=== PATIENT | female | born 1955 | race Caucasian/White ===

== ENCOUNTER 2020-03-11 13:36 | Outpatient (CLI) | payer BC, SELFPAY ==
--- NOTE | ~2020-03-11 | XR_ITS ---
XR ankle LT min 3V DATE: 03/11/2020 14:03 INDICATION: Left ankle pain, lateral ankle instability TECHNIQUE: 4 views COMPARISON: None FINDINGS: There is prominent narrowing at the tibiotalar joint as well as prominent spurring, consist ent with prominent osteoarthritis. No fracture or dislocation of the ankle or disruption of the ankle mortise is evident. No periosteal reaction or bone destruction. Mild plantar calcaneal enthesopathy. IMPRESSION: Osteoarthritis of the tibiotalar joint Reviewed, dictated and finalized at location A.
== END 2020-03-11 13:37 | disposition home or self-care (01) ==
LOC: ANHIMG 13:41
PROVIDERS: PCP Internal Medicine; Visit Provider Podiatrist Foot & Ankle Surgery
DX: M25.372 Other instability, left ankle (principal); M19.072 Primary osteoarthritis, left ankle and foot
CPT/HCPCS: 73610

== ENCOUNTER 2021-11-13 12:49 | Emergency (ER) | payer MEDICARE, SELFPAY ==
--- NOTE | ~2021-11-13 | CT_ITS ---
EXAMINATION: CT brain wo con DATE: 11/13/2021 13:34 INDICATION: Altered mental status, memory loss TECHNIQUE: Computed tomography (CT) of the head was performed without intravenous contrast. The mA wa s adjusted according to patient size. Iterative reconstruction technique was employed. Exam dose: 60 5.33 mGy-cm total exam DLP. COMPARISON: None FINDINGS: No intracranial mass lesion or hemorrhage or cerebrovascular accident is detected. No midli ne shift or mass effects. Normal ventricular size. No subdural or epidural hematoma. There is some ca lcification of the carotid siphon internal carotid arteries. The orbits are unremarkable. The mastoid air cells and included paranasal sinuses are normally develo ped and aerated. No fracture or bone destruction of the cranial vault. IMPRESSION: Cerebral atherosclerosis No acute intracranial finding Reviewed, dictated and finalized at Location A. Reviewed, dictated and finalized at location B. 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
[2021-11-13 12:52] VITALS: BP 142/92; PULSE 82; RESP 18; TEMP 36.4; O2SAT 98
--- NOTE | 2021-11-13 13:24 | ECG_ITS ---
Measurements Intervals [facility] Rate: 48 P: 73 [place]: 151 QRS: 51 QRSD: 86 T: 49 QT: 469 QTc: 421 Interpretive Statements SINUS BRADYCARDIA ABNORMAL ECG Electronically Signed On 11-13-2021 14:00:04 CUSTOM GARMENT DESIGNER by Panchito Chakraborty D.O.
--- NOTE | 2021-11-13 13:49 | ED.AMS ---
HPI - Altered Mental Status General Chief Complaint: Altered Mental Status Stated Complaint: episode of AMS Time Seen by Provider: 11/13/21 13:17 Source: patient Mode of arrival: ambulatory Limitations: no limitations History of Present Illness HPI narrative: Patient is a 66-year-old female complaining of memory loss this past Saturday from 11 AM to 1 PM. Denies any episodes since. Patient denies any speech or visual disturbance, focal weakness or numbness, unsteady gait, headache, dizziness, chest pain, shortness of breath, nausea, vomiting, diarrhea, urinary symptoms, fever or chills. Related Data Home Medications Medication Instructions Recorded Confirmed omega-3 fatty acids 1,000 mg 1,000 mg PO DAILY 12/27/20 07/13/21 capsule vitamin E (dl, acetate) 180 mg 400 unit PO DAILY 12/27/20 07/13/21 (400 unit) capsule Allergies Allergy/AdvReac Type Severity Reaction Status Date / Time Penicillins Allergy Mild Hives / Verified 11/13/21 12:54 Red Face dichloralphenazone Allergy Unknown Unknown Verified 11/13/21 12:54 ISOMETHEPTENE MUCATE Allergy Unknown Unknown Uncoded 11/13/21 12:54 Review of Systems Review of Systems: All systems reviewed & are unremarkable except as noted in HPI and below Constitutional: Constitutional: Denies body ache(s), Denies chills, Denies excessive sweating, Denies fatigue, Denies fever(s), Denies headache(s), Denies lethargy, Denies malaise, Denies weakness and Denies weight loss Eyes: Eyes: Denies blurry vision, Denies change in vision and Denies loss of vision ENT: Denies dizziness, Denies ear discharge, Denies headache(s), Denies lip swelling, Denies epistaxis, Denies nasal congestion, Denies neck pain, Denies throat swelling and Denies tongue swelling Cardiovascular: Cardiovascular: Denies chest pain, Denies chest pain at rest, Denies chest pain with activity, Denies diaphoresis, Denies rapid heart rate, Denies edema, Denies irregular heart rhythm, Denies lightheadedness, Denies palpitations, Denies dyspnea and Denies dyspnea on exertion Respiratory: Respiratory: Denies chest congestion, Denies cough, Denies hemoptysis, Denies dyspnea and Denies dyspnea on exertion Gastrointestinal: Gastrointestinal: Denies abdominal pain, Denies melena, Denies hematochezia, Denies diarrhea, Denies nausea, Denies vomiting and Denies hematemesis Musculoskeletal: Musculoskeletal: Denies abnormal gait, Denies deformity, Denies joint swelling, Denies limited range of motion, Denies neck pain and Denies numbness Neurologic: Denies Abnormal speech present, Denies abnormal gait, Denies confusion, Denies dizziness, Denies headache(s), Denies focal weakness, Denies loss of vision, Denies numbness, Denies Other visual disturbances, Denies Sensory deficit (Neuro) and Denies weakness Psychiatric: Psychiatric: Denies confusion, Denies depression, Denies auditory hallucinations, Denies homicidal ideation and Denies suicidal ideation Endocrine: Endocrine: Denies cold intolerance, Denies excessive sweating, Denies fatigue, Denies heat intolerance and Denies palpitations Hematologic/Lymphatic: Hematologic/Lymphatic: Denies easy bleeding and Denies easy bruising Allergic/Immunologic: Allergic/Immunologic: Denies lip swelling, Denies throat swelling and Denies tongue swelling PMFSH Past Medical History Medical History BMI 31.0-31.9,adult BMI 32.0-32.9,adult Chronic back pain Chronic intractable headache Chronic pain of left ankle Colon cancer screening DJD (degenerative joint disease), multiple sites Elevated glucose Elevated homocysteine Encounter for routine adult health examination without abnormal findings Hyperlipidemia Insomnia On retirement drug therapy Onychomycosis Pre-diabetes Family History Family History Sibling Family history of mental disorder Patient's sister is in good health Patient
[2021-11-13 14:20] LABS: Basophils Percent Auto 0.5 % (0.2-1.2); Eosinophils Absolute Auto 0.1 K/mm3 (0-0.3); Eosinophils Percent Auto 1.1 % (0-4.4); Hematocrit 39.7 % (37.0-47.0); Hemoglobin 13.2 g/dL (12.0-15.0); Immature Granulocyte Absolute 0.01 K/mm3 (0.00-0.031); Immature Granulocyte Percent A 0.2 % (0-0.5); Lymphocytes Absolute Auto 1.95 K/mm3 (0.9-3.2); Lymphocytes Percent Auto 29.5 % (18.3-44.2); Mean Corpuscular HGB Conc 33.2 g/dl (32-36); Mean Corpuscular Hemoglobin 30.3 pg (26-34); Mean Corpuscular Volume 91.1 fl (80-100); Monocytes Absolute Auto 0.4 K/mm3 (0.1-0.6); Monocytes Percent Auto 6.4 % (2.6-8.5); Neutrophils Absolute Auto 4.1 K/mm3 (1.3-6.7); Neutrophils Percent Auto 62.3 % (45.5-73.1); Platelet Count Result 253 k/mm3 (150-375); Red Blood Count 4.36 M/mm3 (4.2-5.4); Red Cell Distribution Width 13.1 % (11.5-14.5); White Blood Count 6.6 K/mm3 (4.5-10.0)
[2021-11-13 14:21] LABS: Anion Gap 6 mmol/L (8-16); Blood Urea Nitrogen 14 mg/dL (7-17); Calcium 8.9 mg/dL (8.4-10.2); Carbon Dioxide 28 mmol/L (22-30); Chloride 105 mmol/L (98-107); Estimated CRCL calculation 70 ml/min; Estimated Glomerular Filt Rate > 60; Glucose 108 mg/dL (65-110); Potassium 4.1 mmol/L (3.4-5.0); Sodium 139 mmol/L (137-145)
[2021-11-13 14:33] LABS: Troponin I < 0.012 ng/mL (0.000-0.034)
[2021-11-13 14:40] LABS: Add Urine Microscopic? NO; Appearance Urine Clear (Clear); Bilirubin Urine Negative (Negative); Blood Urine Negative (Negative); Color Urine Yellow (Yellow); Glucose Urine UA Negative (Negative); Ketones Urine Negative (Negative); Leukocyte Esterase Ur Negative LEU/UL (Negative); Nitrate Urine Negative (Negative); Protein Urine Negative (Negative); Specific Grav Ur 1.016 (1.001-1.035); Urobilinogen Urine Negative mg/dL (<2.0)
[2021-11-13 15:03] VITALS: BP 147/82; PULSE 77; RESP 16; TEMP 36.3; O2SAT 100
== END 2021-11-13 15:05 | disposition home or self-care (01) ==
PROVIDERS: Emergency Provider Emergency Medicine; PCP Internal Medicine
DX: G45.4 Transient global amnesia (principal); E78.5 Hyperlipidemia, unspecified; R73.03 Prediabetes; R00.1 Bradycardia, unspecified; I67.2 Cerebral atherosclerosis
CPT/HCPCS: 36415; 70450; 80048; 81003; 84484; 85025; 93005; 99284; J7120

== ENCOUNTER 2021-12-11 08:39 | Outpatient (CLI) | payer MEDICARE, SELFPAY ==
--- NOTE | 2021-12-12 10:22 | WPDNEUROLOGY ---
Neurology EEG Report General Information Date of Study: 12/11/21 TEST eeg DIAGNOSIS transient global amnesia CONDITION OF RECORDING awake drowsy and sleep EEG NUMBER [id number] CLINICAL HISTORY patient reports about a month ago she had an episode of amnesia that lasted for several hours. EEG DESCRIPTION Basic resting occipital frequency consists of large amount of well-organized low to medium voltage 9 to 11 hertz per 2nd alpha admixed with low-voltage 15 to 18 hertz per 2nd beta. Low-voltage beta activity seen diffusely admixed with waxing and waning posterior alpha rhythm during drowsiness. Bilateral symmetrical sleep activity seen during sleep. Photic stimulation produced normal drive. Hyperventilation not done. Non paroxysmal. Nonfocal. Nonlateralizing. IMPRESSION Normal record
== END 2021-12-11 08:40 | disposition home or self-care (01) ==
PROVIDERS: PCP Internal Medicine; Visit Provider Internal Medicine
DX: G45.4 Transient global amnesia (principal)
CPT/HCPCS: 95816

== ENCOUNTER → 2021-12-21 11:55 | Outpatient (CLI) | payer MEDICARE, SELFPAY ==
--- NOTE | ~2021-12-21 | MR_ITS ---
EXAMINATION: MR brain/brain stem wo/w con EXAM DATE: 12/21/2021 12:34 INDICATION: G45.4 - Transient global amnesia. TECHNIQUE: Magnetic resonance imaging (MRI) of the brain/brain stem obtained without contrast. Sagit ariel T1, axial diffusion, gradient echo (T2*), T1, T2, FLAIR sequences obtained. Patient was then inj ected with 18 cc intravenous Multihance contrast. Axial and coronal postcontrast T1 weighted sequence s obtained. There is no prior study for comparison. FINDINGS: There are no areas of restricted diffusion to suggest acute infarction. There is no acute hemorrhage seen on the T2*, a hemosiderin sensitive sequence. No intraparenchymal brain mass. The ve ntricles are normal in size. Mild scattered white matter T2/flair hyperintensities, microangiopathy. There are no extra-axial collections. Flow voids are seen in the cerebral arteries on the T2-weighte d sequences consistent with their expected patency. The orbits are unremarkable. Soft tissue is unr emarkable. There are no areas of abnormal enhancement on the postcontrast images. IMPRESSION: 1. Mild microangiopathy. Reviewed, dictated and finalized at location G. IMPRESSION: 1. Mild microangiopathy.
== END ==
PROVIDERS: PCP Internal Medicine; Visit Provider Internal Medicine
DX: G45.4 Transient global amnesia (principal); I73.9 Peripheral vascular disease, unspecified
CPT/HCPCS: 70553; A9577

== ENCOUNTER 2022-01-05 01:13 | Day surgery (SDC) | payer MEDICARE, SELFPAY ==
[2021-12-26 15:52] VITALS: BMI 30.2
--- NOTE | 2022-01-05 07:28 | PM.HPGS ---
History of Present Illness History of Present Illness Consent: Risks, benefits, and alternatives have been discussed and questions answered. Patient agrees to proceed with procedure. Chief complaint: neoplasm screening Narrative: Kaia Simmons is a 66 year old female referred for colon cancer screening. Her last examination was 10 years ago and was negative except for diverticular disease. Review of Systems Review of Systems: All systems reviewed & are unremarkable except as noted in HPI and below PMFSH Past Medical History Medical History Anxiety and depression Benign essential hypertension BMI 31.0-31.9,adult BMI 32.0-32.9,adult Breast cancer screening Chronic back pain Chronic intractable headache Chronic pain of left ankle Colon cancer screening DJD (degenerative joint disease), multiple sites Elevated glucose Elevated homocysteine Encounter for routine adult health examination with abnormal findings Encounter for routine adult health examination without abnormal findings Hyperlipidemia Insomnia 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 Onychomycosis Pre-diabetes Primary osteoarthritis involving multiple joints Stress Subacute maxillary sinusitis Transient global amnesia Family History Family History Sibling Family history of mental disorder Patient's sister is in good health Patient's brother is in good health Family history of alcoholism Family history of diabetes mellitus in first degree relative Family history of seizure disorder Grandparent Family history of osteoarthritis Diabetes mellitus Father Family history of alcoholism, Onset Age: 69 Patient's father is Mother Family history of malignant neoplasm of breast in first degree relative Other Cerebrovascular accident Family history of malignant neoplasm of breast Social History Social History Smoking status: Never smoker Alcohol intake: never Substance use: never Substance use type: does not use Living arrangements: with family Spiritual care concerns: No Meds Home Medications and Allergies Home Medications Medication Instructions Recorded Confirmed Type vitamin E (dl, acetate) 180 mg 400 unit PO DAILY 12/27/20 01/05/22 History (400 unit) capsule omeprazole 40 mg capsule,delayed See Rx Instructions .ROUTE 04/21/21 01/05/22 Rx release .COMPLEX #30 cap venlafaxine 75 mg tablet See Rx Instructions .ROUTE 04/21/21 01/05/22 Rx .COMPLEX #30 tablet nwnmrxyuin-bvqohhmiatfbd-fclqmszw 1 tablet PO .COMPLEX PRN #30 tablet 07/12/21 01/05/22 Rx 50 mg-325 mg-40 mg tablet sumatriptan succinate 25 mg tablet See Rx Instructions .ROUTE 07/12/21 01/05/22 Rx .COMPLEX #18 tablet diclofenac sodium 75 mg See Rx Instructions .ROUTE 09/14/21 01/05/22 Rx tablet,delayed release .COMPLEX #60 tablet diltiazem HCl 360 mg See Rx Instructions .ROUTE 11/16/21 01/05/22 Rx capsule,extended release 24 hr .COMPLEX #90 cap ezetimibe 10 mg tablet See Rx Instructions .ROUTE 11/16/21 01/05/22 Rx .COMPLEX #90 tablet fluticasone propionate 50 See Rx Instructions .ROUTE 11/20/21 01/05/22 Rx mcg/actuation nasal .COMPLEX #48 ml spray,suspension atorvastatin 80 mg tablet See Rx Instructions .ROUTE 12/01/21 01/05/22 Rx .COMPLEX #90 tablet MEGARED 1,000 mg BYMOUTH DAILY #90 cap 12/05/21 01/05/22 Rx hydrocodone 7.5 mg-acetaminophen 1 tablet PO Q6H PRN #60 tablet 12/05/21 01/05/22 Rx 325 mg tablet trazodone 50 mg tablet See Rx Instructions .ROUTE 12/07/21 01/05/22 Rx .COMPLEX #270 tablet Allergies Allergy/AdvReac Type Severity Reaction Status Date / Time Penicillins Allergy Mild Hives / Verified 01/05/22 10:37 Red Face dichloralphenazone Allergy Unknown Unknown Verified 01/05/22 10:37 ISOMETHEPTENE MUCATE Allergy Unknown Unknown Uncoded 01/05/22 10:
[2022-01-05 10:40] VITALS: BP 153/88; PULSE 88; RESP 17; TEMP 36.5; O2SAT 100; BMI 30.2
[2022-01-05] MEDS: LACTATED RINGERS 1,000 ML 150 ML IV CONT (10:43)
--- NOTE | 2022-01-05 11:14 | WPDANESEPPF ---
Anes - Initial Pre Proc Eval Procedure: Operation Date: 01/05/22 11:30 Proposed Procedures p Screening Colonoscopy - Earle Osuna MD Date/Time: 01/05/22 11:14 Surgeon: Earle Osuna MD Pre Op Diagnosis: neoplasm screening Patient Data Age: 66 Gender: F Height: 1.73 m Weight: 90.3 kg Last Vital Signs Temp 36.5 C 01/05/22 10:40 Pulse 88 01/05/22 10:40 Resp 17 01/05/22 10:40 BP 153/88 H 01/05/22 10:40 Pulse Ox 100 01/05/22 10:40 Allergies Allergy/AdvReac Type Severity Reaction Status Date / Time Penicillins Allergy Mild Hives / Verified 01/05/22 10:37 Red Face dichloralphenazone Allergy Unknown Unknown Verified 01/05/22 10:37 ISOMETHEPTENE MUCATE Allergy Unknown Unknown Uncoded 01/05/22 10:37 Home Medications Medication Instructions Recorded Confirmed Type vitamin E (dl, acetate) 180 mg 400 unit PO DAILY 12/27/20 01/05/22 History (400 unit) capsule omeprazole 40 mg capsule,delayed See Rx Instructions .ROUTE 04/21/21 01/05/22 Rx release .COMPLEX #30 cap venlafaxine 75 mg tablet See Rx Instructions .ROUTE 04/21/21 01/05/22 Rx .COMPLEX #30 tablet xorpiboayr-shpivyzevbnck-gvrbotbx 1 tablet PO .COMPLEX PRN #30 tablet 07/12/21 01/05/22 Rx 50 mg-325 mg-40 mg tablet sumatriptan succinate 25 mg tablet See Rx Instructions .ROUTE 07/12/21 01/05/22 Rx .COMPLEX #18 tablet diclofenac sodium 75 mg See Rx Instructions .ROUTE 09/14/21 01/05/22 Rx tablet,delayed release .COMPLEX #60 tablet diltiazem HCl 360 mg See Rx Instructions .ROUTE 11/16/21 01/05/22 Rx capsule,extended release 24 hr .COMPLEX #90 cap ezetimibe 10 mg tablet See Rx Instructions .ROUTE 11/16/21 01/05/22 Rx .COMPLEX #90 tablet fluticasone propionate 50 See Rx Instructions .ROUTE 11/20/21 01/05/22 Rx mcg/actuation nasal .COMPLEX #48 ml spray,suspension atorvastatin 80 mg tablet See Rx Instructions .ROUTE 12/01/21 01/05/22 Rx .COMPLEX #90 tablet MEGARED 1,000 mg BYMOUTH DAILY #90 cap 12/05/21 01/05/22 Rx hydrocodone 7.5 mg-acetaminophen 1 tablet PO Q6H PRN #60 tablet 12/05/21 01/05/22 Rx 325 mg tablet trazodone 50 mg tablet See Rx Instructions .ROUTE 12/07/21 01/05/22 Rx .COMPLEX #270 tablet Patient hx anesthesia problems: none Family hx anesthesia problems: none Results Review: All pre-operative results and documents have been reviewed as part of the pre-operative evaluation. [facility] Past Medical History Medical History Anxiety and depression Benign essential hypertension Chronic intractable headache Family History Family History Sibling Family history of mental disorder Patient's sister is in good health Patient's brother is in good health Family history of alcoholism Family history of diabetes mellitus in first degree relative Family history of seizure disorder Grandparent Family history of osteoarthritis Diabetes mellitus Father Family history of alcoholism, Onset Age: 69 Patient's father is Mother Family history of malignant neoplasm of breast in first degree relative Other Cerebrovascular accident Family history of malignant neoplasm of breast Social History Social History Smoking status: Never smoker Alcohol intake: never Substance use: never Substance use type: does not use Living arrangements: with family Spiritual care concerns: No Anes - Eval Final PreProcedure Day of Procedure 01/05/22 11:14 Patient weight: overweight Heart: regular rate and rhythm Lungs: clear to auscultation Airway: Mallampati scale class II Neurological: alert and oriented ASA classification: II Emergent: no Anesthetic plan: proceed Anesthesia type and monitoring: general GIVS and standard monitoring Results Review: All pre-operative results and documents have b
[2022-01-05 12:20] VITALS: BP 116/66; PULSE 65; RESP 18; O2SAT 100
[2022-01-05 12:30] VITALS: BP 129/75; PULSE 69; RESP 20; O2SAT 100
[2022-01-05 12:40] VITALS: BP 159/92; PULSE 74; RESP 22; O2SAT 96
== END 2022-01-05 12:56 | disposition home or self-care (01) ==
PROVIDERS: PCP Internal Medicine; Visit Provider Internal Medicine Gastroenterology
PROC: 0DJD8ZZ Inspection of Lower Intestinal Tract, Via Natural or Artificial Opening Endoscopic (ICD-10-PCS; CPT 45378; principal; 2022-01-05 11:30)
DX: Z12.11 Encounter for screening for malignant neoplasm of colon (principal); K57.30 Diverticulosis of large intestine without perforation or abscess without bleeding; D12.5 Benign neoplasm of sigmoid colon; E78.5 Hyperlipidemia, unspecified; M15.9 Polyosteoarthritis, unspecified; R73.03 Prediabetes; F32.A Depression, unspecified; F41.9 Anxiety disorder, unspecified; Z79.899 Other long term (current) drug therapy
CPT/HCPCS: 45385; 88305; J2001; J2704; J7120

== ENCOUNTER 2022-06-05 09:14 | Outpatient (CLI) | payer MEDICARE, SELFPAY ==
--- NOTE | ~2022-06-05 | US_ITS ---
EXAMINATION: US abdomen limited DATE: 06/05/2022 09:44 INDICATION: Abnormal levels of other serum enzymes TECHNIQUE: Multiple grayscale and Doppler ultrasound images of the abdomen were obtained. COMPARISON: None available FINDINGS: Bowel gas obscures visualization of the pancreas. The visualized portions of the pancreas a re unremarkable. The liver is normal with normal echogenicity and echotexture. No surface nodularity. Normal hepatopetal flow in the main portal vein. The gallbladder is normal with no abnormal wall thi ckening, pericholecystic fluid or stones. The normal common bile duct measures 3 mm. There was no son ographic Lopez sign. IMPRESSION: 1. Normal sonographic study of the gallbladder. Reviewed, dictated and finalized at location B.
== END 2022-06-05 09:15 | disposition home or self-care (01) ==
PROVIDERS: PCP Internal Medicine; Visit Provider Internal Medicine
DX: R74.8 Abnormal levels of other serum enzymes (principal)
CPT/HCPCS: 76705

== ENCOUNTER 2022-06-11 11:30 | Outpatient (CLI) | payer MEDICARE, SELFPAY ==
--- NOTE | ~2022-06-11 | XR_ITS ---
EXAM: XR hip BI 2V w AP pelvis DATE: 06/11/2022 11:56 HISTORY: M25.559 - Pain in unspecified hip CHRONIC BILAT NON INJ . COMPARISON: 08/16/2017. FINDINGS: Normal mineralization. No fracture or dislocation. No lytic or blastic lesion. Severe bila teral superior hip joint space narrowing, subchondral sclerosis, osteophytosis, and subchondral cyst formation. Degenerative change at the pubic symphysis. Greater trochanter and pelvic enthesopathy. Mi ld degenerative change in the lumbar spine. No erosion or periosteal change. Pelvic phleboliths. IMPRESSION: Severe bilateral hip osteoarthritis. Osteitis pubis. Reviewed, dictated and finalized at location K.
== END 2022-06-11 11:31 | disposition home or self-care (01) ==
PROVIDERS: PCP Internal Medicine; Visit Provider Internal Medicine
DX: M25.559 Pain in unspecified hip (principal); M16.0 Bilateral primary osteoarthritis of hip; M86.9 Osteomyelitis, unspecified
CPT/HCPCS: 73521

== ENCOUNTER 2023-06-05 11:28 | Outpatient (CLI) | payer MEDICARE, SELFPAY ==
--- NOTE | ~2023-06-05 | XR_ITS ---
EXAMINATION: XR hand LT min 3V INDICATION: Osteoarthritis of the first carpometacarpal joint TECHNIQUE: Three views of the left hand are obtained. COMPARISON: 04/20/2009 FINDINGS: There is advanced osteoarthritis of the first carpometacarpal joint with interval worsening since the comparison examination. There is moderate osteoarthritis at the triscaphe joint. No fractu re is identified. There is mild to moderate osteoarthritis of multiple interphalangeal joints. IMPRESSION: 1. Polyarticular osteoarthritis, advanced at the first carpometacarpal joint. Reviewed, dictated and finalized at location F.
--- NOTE | ~2023-06-05 | XR_ITS ---
EXAMINATION: XR hand RT min 3V INDICATION: Osteoarthritis of the first carpometacarpal joint TECHNIQUE: Three views of the right hand are obtained. COMPARISON: 04/20/2009 FINDINGS: There is advanced osteoarthritis at the first carpometacarpal joint. There is moderate oste oarthritis of the triscaphe joint. There is advanced osteoarthritis of the second and third distal in terphalangeal joints and mild osteoarthritis of the remaining interphalangeal joints. There is no fra cture. The soft tissues are unremarkable. IMPRESSION: 1. Polyarticular osteoarthritis, advanced at the first carpometacarpal joint. Reviewed, dictated and finalized at location F.
== END 2023-06-05 11:29 | disposition home or self-care (01) ==
PROVIDERS: PCP Internal Medicine; Visit Provider Plastic Surgery
DX: M19.041 Primary osteoarthritis, right hand (principal); M19.042 Primary osteoarthritis, left hand
CPT/HCPCS: 73130

== ENCOUNTER 2024-04-14 13:15 | Outpatient (CLI) | payer MEDICARE, SELFPAY ==
--- NOTE | ~2024-04-14 | XR_ITS ---
XR chest 2V Ordering provider: Jas West MD History: 68 years Female with . R05.9 - Cough, unspecified X 2 MO . Comparison: December 11, 2016 FINDINGS: MEDIASTINUM: The cardiac silhouette is not enlarged. LUNGS: No infiltrates, effusions or pneumothorax. OTHER: No free air under the diaphragm. Degenerative changes of the spine. IMPRESSION: No acute cardiopulmonary pathology. Reviewed, dictated and finalized at location A.
== END 2024-04-14 13:16 | disposition home or self-care (01) ==
LOC: ANHIMG 13:18
PROVIDERS: PCP Internal Medicine; Visit Provider Internal Medicine
DX: R05.9 Cough, unspecified (principal)
CPT/HCPCS: 71046

== ENCOUNTER 2024-11-03 13:46 | Outpatient (CLI) | payer MEDICARE, SELFPAY ==
--- NOTE | ~2024-11-03 | XR_ITS ---
EXAMINATION: XR UGIAC w small bowel DATE: 11/03/2024 14:58 INDICATION: Unspecified abdominal pain. Nausea. TECHNIQUE: The patient drank thick barium, gas-producing crystals, and thin barium. Fluoroscopy of th e esophagus, stomach, and small bowel was performed. Fluoroscopy exposure time was 1.1 minutes. Radio graphs of the abdomen were obtained. The total number of images was 288. COMPARISON: None. FINDINGS: UPPER GASTROINTESTINAL SERIES: There is no mass or stricture of the esophagus. Esophageal motility is normal. There is a small slidi ng hiatal hernia. There was gastroesophageal reflux with provocative maneuvers. The stomach shows a n ormal folding pattern. SMALL BOWEL SERIES: The small bowel shows a normal folding pattern. Specifically, the terminal ileum is normal. Transit t mike to the colon was 15 minutes. IMPRESSION: 1. Small sliding hiatal hernia. 2. Gastroesophageal reflux with provocative maneuvers. 3. Normal small bowel series. Reviewed, dictated and finalized at location A. IC SERVICE OFFICER
--- OUTSIDE RECORDS SUMMARY | 2024-11-03 13:58 | XMS_ITS | CONTINUITY OF CARE DOCUMENT ---
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
--- OUTSIDE RECORDS SUMMARY | 2024-11-03 13:58 | XMS_ITS | Referral Summary ---
Author Organization [facility] Address [address] [place] [id number] Care Team Providers Care Bit Shaver Name Role Phone Jas West MD Primary Care Provider [phone] Encounters Date Type Department Care Team Description 08/03/2024 8:00 AM SUPERCHARGE REPAIR SUPERVISOR Diagnostic [facility] Orthopaedic Surgery [address] [place] [address] Medical Office Building [address] [place] [address] Frankie Khalil MD Numbness of left foot from Last 3 Months Allergies Active Allergy Reactions Criticality Noted Date Comments Hxwttcd-Snqrggond-Plnkomd nophn Hives Medium 01/10/2022 Hives in same spot every time she'd get them Penicillins Hives,Swelling Medium 01/10/2022 As a child Medications atorvastatin (LIPITOR) 80 mg tabletIndicatio ns:hyperlipidem ia Take 80 mg by mouth nightly 05/11/20 21 Active butalbital-acet aminophen-caffe ine (ESGIC) 50-325-40 mg per tabletIndicatio ns:Migraine Take 1 tablet by mouth daily as needed for headaches 07/12/[address] (VOLTAREN) 75 mg EC tabletIndicatio ns:Osteoarthrit is Take 75 mg by mouth 2 (two) times a day 07/16/20 21 Active diltiaZEM CD (CARDIZEM CD) 360 mg 24 hr capsuleIndicati ons:hypertensio n Take 360 mg by mouth nightly 05/19/20 21 Active ezetimibe (ZETIA) 10 mg tabletIndicatio ns:hyperlipidem ia Take 10 mg by mouth nightly 05/04/20 21 Active fluticasone propionate (FLONASE) 50 mcg/actuation nasal spray Administer 1 spray into each nostril every morning 05/27/20 21 Active omeprazole (PriLOSEC) 40 mg capsuleIndicati ons:GERD Take 40 mg by mouth every morning 04/24/20 21 Active SUMAtriptan (IMITREX) 25 mg tablet Take 25 mg by mouth once as needed for migraine 07/12/20 21 Active venlafaxine (EFFEXOR) 75 mg tabletIndicatio ns:to reduce hot flashes Take 75 mg by mouth nightly 04/21/20 21 Active traZODone (DESYREL) 50 mg tabletIndicatio ns:insomnia associated with depression Take by mouth nightly Up to 2-3 tabs depending on how tired she is Active glucosamine/cho ndr roe A sod (glucosamine-ch ondroitin) 1,500-1,200 mg/30 mL liquidIndicatio ns:Arthritis Take 1 tablet by mouth nightly Active cholecalciferol (VITAMIN D-3) 2000 unit capsuleIndicati ons:Vitamin D Deficiency Take 2,000 Units by mouth nightly Active apple cider vinegar 500 mg tabletIndicatio ns:Someone said it is good for you Take 500 mg by mouth nightly Active omega-3/dha/epa /fish oil/krill (MEGARED ADVANCED 4-IN-1 ORAL)Indication s:Arthritis and cholesterol Take 1 capsule by mouth nightly Active aspirin 325 mg enteric coated tablet Take 1 tablet (325 mg total) by mouth daily 30 tablet 01/19/20 22 Active senna (SENOKOT) 8.6 mg tablet Take 1 tablet by mouth daily 30 tablet 01/19/20 22 Active ketorolac (TORADOL) 10 mg tablet Take 1 tablet (10 mg total) by mouth every 6 (six) hours as needed for pain 16 tablet 01/24/20 22 Active Additional Information Patient not taking.Reported on 06/30/2024 promethazine (PHENERGAN) 25 mg tabletIndicatio ns:Nausea and Vomiting Take 12.5 mg by mouth every 6 (six) hours as needed for nausea. Indications: nausea and vomiting Active molnupiravir 200 mg capsule (EUA) TAKE 4 CAPSULES BY MOUTH EVERY 12 HOURS FOR 5 DAYS 03/22/20 Active HYDROcodone-dorota taminophen (NORCO) 7.5-325 mg per tablet Take by mouth every 6 (six) hours as needed 03/09/20 Active pregabalin (LYRICA) 75 mg capsule Take 1 capsule PO in the AM for 1 week then take 2 capsule PO BID for a month 72 capsule 1 05/24/20 Active methylPREDNISol one (MEDROL DOSEPACK) 4 mg Dosepack methylprednisolone 4 mg tablets in a dose pack TAKE 6 TABLETS ON DAY 1 DIRECTED ON PACKAGE AND DECREASE BY 1 TAB EACH DAY FOR A TOTAL OF 6 DAYS Active cyclobenzaprine (FLEXERIL) 10 mg tablet cyclobenzaprine 10 mg tablet Active amitriptyline (ELAVIL) 100 mg tablet TAKE 1 TABLET BY MOUTH EVERY DAY AT BEDTIME - PLEASE STOP THE 25MG 11/21/19 Active Aimovig Autoinjector 70 mg/mL auto-injector subcutaneous injection INJECT 70MG SUBCUTANEOUSLY ONCE A MONTH 06/23/20 Active Active Problems Problem Noted Date Diagnosed Date Primary localized osteoarthritis of pelvic regio n and thigh 07/26/2022 Hip pain 07/26/2022 Trochanteric bursitis of right hip 07/11/2022 Osteoarthritis of left ankle , unspecified osteoarthritis type 01/22/2022 Arthritis of left ankle 01/22/2022 HTN (hypertension) 01/17/2022 HLD (hyperlipidemia) 01/17/2022 Osteoarthritis of left ankle 12/06/2021 Overview (12/06/2021): Added automatically from request for surgery [id number] Social History Tobacco Use Types Packs/Day Years Used Date Smoking Tobacco: Never Smokeless Tobacco: Never AUDIT-C Answer Date Recorded Q1: How often do you have a drink containing alc ohol? Monthly or less 01/22/2022 Q2: How many drinks containi ng alcohol do you have on a typical day when you are drinking? 1 or 2 01/22/2022 Frequency of Binge Drinking Not on file 12/30 Comments No Sex and Gender Information Value Date Recorded Sex Assigned at Not on file Legal Sex Female 3:34 PM CDT Gender Identity Not on file Sexual Orientation Not on file Last Filed Vital Signs Vital Sign Reading Time Taken Comments Blood Pressure 118/77 02/07/2022 8:53 AM CDT Pulse 65 02/07/2022 8:53 AM CDT Temperature 36.1 ??C (97 ??F) 02/07/2022 8:53 AM CDT Respiratory Rate 18 02/07/2022 8:53 AM CDT Oxygen Saturation 96% 02/07/2022 8:53 AM CDT Inhaled Oxygen Concentration - - Weight 90.6 kg (199 lb 11.8 oz) 01/22/2022 5:45 AM CDT Height 172.7 cm (5' 8 ) 01/22/2022 5:45 AM CDT Body Mass Index 30.37 01/22/2022 5:45 AM CDT Plan of Treatment Not on file Medical Devices Implanted Type Area Health Equipment Servicer Device Identifier Shelf Expiration Date Model / Serial / Lot [employer] [id number] Infinity Knee 3 Tray Tibial Adaptis - [id number] Implanted:Qty: 1 on 01/22/2022 by Felix Landa MD at [facility] Left: Ankle [employer] [id number] 11/14/2029 [id number] / / [id number] [employer] [id number] Taldome Infinity Adaptis Flatcut Sz2 - [id number] - [id number] Implanted:Qty: 1 on 01/22/2022 by Felix Landa MD at [facility] Left: Ankle [employer] [id number] 09/26/2029 [id number] / [id number] / [id number] [employer] [id number] Impl Fxatn 8mm Inbone 2+ Ankle Everlast - [id number] - [id number] Implanted:Qty: 1 on 01/22/2022 by Felix Landa MD at [facility] Left: Ankle [employer] [id number] 01/15/2029 [id number] / [id number] / [id number] Procedures Procedure Name Priority Date/Time Associated Diagnosis Comments EMG/NCV Routine 08/03/2024 8:03 AM SUPERCHARGE REPAIR SUPERVISOR Numbness of left foot from Last 3 Months Results * EMG/NCV - (08/03/2024 8:03 AM SUPERCHARGE REPAIR SUPERVISOR) Anatomical Region Laterality Modality Other Frankie Khalil MD NEUROLOGY ORDERABLES Final Result from Last 3 Months Insurance MEDICARE SOLUTIONS MEDICARE SOLUTIONS [facility] MDCR HMO REF Advance Directives For more information, please contact: [phone] * Full Code (Latest Code Status on File) Date Activated Date Inactivated Comments 01/22/2022 12:42 PM 01/23/2022 6:25 PM Care Teams Bit Shaver Relationship Specialty Start Date End Date Jas West MD [address] INTERNAL MEDICINE [place] [id number] PCP - General Internal Medicine 02/08/21
--- OUTSIDE RECORDS SUMMARY | 2024-11-03 13:58 | XMS_ITS | Clinical Summary ---
Author Organization [facility] Address [address] [place] [address]. 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 Gender Identity Not on file Sexual Orientation Not on file Plan of Treatment Health Maintenance Due Date Last Done Comments Colorectal Cancer Screening Colonoscopy (10 Years) 1956 Hepatitis C 1974 DTaP, Tdap and Td Vaccines ( 1 - Tdap) 1975 Mammogram Screening 1996 Zoster Vaccines (1 of 2) 2006 Annual Medicare Wellness Visit 2021 Dexa Scan (General) 2021 Pneumococcal Vaccine: 65+ Ye ars (1 of 1 - PCV) 2021 COVID-19 Vaccine (2023-2 5 season) 2024 Influenza Adult (#1) 2024 RSV Immunization or 60+ Years (1 - 1-dose 75+ series) 2031 Meningococcal B Vaccine Aged Out No l onger eligible based on patient's age to complete this topic Meningococcal Vaccine Aged Out No jeronimo desire eligible based on patient's age to complete this topic RSV Immunizations Under 20 Months Aged Out No longer eligible based on patient's age to complete this topic Insurance [facility] Care Teams Pumper Gauger Relationship Specialty Start Date End Date Jas West MD [address] [place] [id number] PCP - General INTERNAL MEDICINE 09/02/20
--- OUTSIDE RECORDS SUMMARY | 2024-11-03 13:58 | XMS_ITS | Clinical Summary ---
Author Organization [facility] Address [facility] [place] [address] Care Team Providers Care Protector Plate Attacher Name Role Phone Jas West MD Primary Care Provider [phone] Allergies Active Allergy Reactions Criticality Noted Date Comments Wbvmtfv-Pdywcluhm-Jhzevrc nophn Hives Medium 01/10/2022 Hives in same [...] EVERY 12 HOURS FOR 5 DAYS 03/22/20 22 Active HYDROcodone-dorota taminophen (NORCO) 7.5-325 mg per tablet Take by mouth every 6 (six) hours as needed 03/09/20 22 Active pregabalin (LYRICA) 75 mg capsule Take [...] (12/06/2021): Added automatically from request for surgery [id number] Encounters Date Type Department Care Team Description 08/03/2024 8:[address] REPORTER Diagnostic [facility] Orthopaedic Surgery [address] [facility] Medical Office Building [address] [place] [address] Frankie Khalil MD Numbness of left foot from Last 3 Months Surgical History Surgery Date Site/Laterality Comments APPENDECTOMY LAPAROSCOPY TOE SURGERY x2 / had bone growing upward and touching toenail Medical History Medical History Date Comments Hypertension GERD (gastroesophageal reflux disease) Osteoarthritis Hyperlipidemia Social History Tobacco Use Types Packs/Day Years [...] on file Sexual Orientation Not on file Obstetrics History Last Filed Vital Signs Vital Sign Reading [...] 01/22/2022 5:45 AM CDT Plan of Treatment Health Maintenance Due Date Last Done Comments Breast Cancer Screening-Mammogram 1956 Colon Cancer Screening-Colonoscopy 1956 Depression Screening 1956 Hepatitis C Screening 1956 Osteoporosis Screening-Bone Density Scan 1956 DTaP/Tdap/Td Vaccine (1 - Tdap) 1967 Hepatitis B Screening 1974 Zoster Vaccine (1 of 2) 2006 Pneumococcal vaccine 65+ (1 of 1 - PCV) 2021 Well Visit 65+ 2021 Fall Risk Assessment 01/23/2023 01/23/2022 Covid-19 Vaccine (4 - 2023-2 5 season) 2024 08/01/2021, 11/29/2020, 10/27/2020 Influenza Vaccine (#1) 2024 , 06/26/2018, 09/13/2005, Additional history exists Medical Devices Implanted Type Area Bird Trapper Device Identifier Shelf Expiration Date Model / Serial / Lot [employer] [id number] Infinity Knee 3 Tray Tibial Adaptis - [id number] Implanted:Qty: 1 on 01/22/2022 by Felix Landa MD at [facility] Left: Ankle [employer] [id number] 11/14/2029 [id number] / / [id number] [employer] [id number] Taldome Infinity Adaptis Flatcut Sz2 - [id number] - [id number] Implanted:Qty: 1 on 01/22/2022 by Felix Landa MD at [facility] Left: Ankle [employer] [id number] 09/26/2029 [id number] / [id number] / [id number] [employer] [id number] Impl Fxatn 8mm Inbone 2+ Ankle Everlast - [id number] - [id number] Implanted:Qty: 1 on 01/22/2022 by Felix Landa MD at [facility] Left: Ankle [employer] [id number] 01/15/2029 [id number] / [id number] / [id number] Procedures Procedure Name Priority Date/Time Associated Diagnosis Comments EMG/NCV Routine 08/03/2024 8:[address] REPORTER Numbness of left foot from Last 3 Months Results * EMG/NCV - (08/03/2024 8:[address] REPORTER) Anatomical Region Laterality Modality Other Frankie Khalil MD NEUROLOGY ORDERABLES Final Result from Last [address] [place] [address] MEDICARE SOLUTIONS MEDICARE SOLUTIONS [facility] MDCR HMO REF Advance Directives For more information, please contact: [phone] * Full Code (Latest Code Status on File) Date Activated Date Inactivated Comments 01/22/2022 12:42 PM 01/23/2022 6:25 PM Care Teams Protector Plate Attacher Relationship Specialty Start Date End Date Jas West MD [address] [place] [address] PCP - General Internal Medicine 02/08/21
== END 2024-11-03 13:47 | disposition home or self-care (01) ==
PROVIDERS: PCP Internal Medicine; Visit Provider Radiology Diagnostic Radiology
DX: K44.9 Diaphragmatic hernia without obstruction or gangrene (principal); K21.9 Gastro-esophageal reflux disease without esophagitis
CPT/HCPCS: 74246; 74248

== ENCOUNTER 2025-07-22 09:51 | Outpatient (CLI) | payer MEDICARE, SELFPAY ==
--- NOTE | ~2025-07-22 | CT_ITS ---
EXAMINATION: CT_LELTCHWO_CT DATE: 07/22/2025 10:17 INDICATION: Left hip osteoarthritis for preoperative planning. TECHNIQUE: High resolution computed tomography (CT) of the left hip and femur which includes the pelvis and contralateral right femur extending from above the iliac crests to below the knees was performed without intravenous contrast. Additional sagittal and coronal reconstructions were performed. Automated exposure control and iterative reconstruction technique were employed. The dose- length product was 1026.28 mGy-cm. COMPARISON: None FINDINGS: Severe lower lumbar spondylosis. Right total hip arthroplasty which appears well seated in near-anatomic alignment with no periprosthetic lucency to suggest loosening or infection. No fracture. Advanced left hip osteoarthritis with early remodeling at the apex of the left femoral head with prominent hypertrophic changes along the margins of the head and extending along the neck of the left femur. No joint effusions. Tricompartmental osteoarthritis of both knees, moderate severity at the patellofemoral articulations and at least mild in the medial lateral compartments although severity could be underestimated on nonweightbearing imaging. No knee joint effusions. Musculature in the pelvis and bilateral thighs appears normal and symmetric. Portions of the bladder and uterus are obscured by metallic streak artifact from a right total hip arthroplasty. No evident free fluid in the pelvis. No pathologically enlarged pelvic or inguinal lymphadenopathy. IMPRESSION: 1. Advanced left hip osteoarthritis. Reviewed, dictated and finalized at location A.
--- OUTSIDE RECORDS SUMMARY | 2025-07-22 10:38 | XMS_ITS | Clinical Summary ---
Author Organization [facility] Address [address] [place] [phone] Care Team Providers Care Dock Coordinator Name Role Phone Jas West MD Primary Care Provider [phone] Allergies Active Allergy Reactions Criticality Noted Date Comments Xdszwmn-Otgjwlbtf-Gwngciv nophn Hives Medium 01/10/2022 Hives in same [...] mouth daily 30 tablet 01/19/20 22 Active Additional Information Patient not taking.Reported on 02/18/2025 senna (SENOKOT) 8.6 mg tablet Take 1 tablet by mouth daily 30 tablet 01/19/20 22 Active Additional Information Patient not taking.Reported on 02/18/2025 ketorolac (TORADOL) 10 mg tablet Take 1 tablet (10 mg total) by mouth every 6 (six) hours as needed for pain 16 tablet 01/24/20 22 Active Additional Information Patient not taking.Reported on 02/18/2025 promethazine (PHENERGAN) 25 mg tabletIndicatio ns:Nausea and [...] a month 72 capsule 1 05/24/20 Active Additional Information Patient not taking.Reported on 02/18/2025 methylPREDNISol one (MEDROL DOSEPACK) 4 mg Dosepack [...] (12/06/2021): Added automatically from request for surgery [id number] Surgical History Surgery Date Site/Laterality Comments APPENDECTOMY [...] 66 02/07/2022 8:53 AM CDT Temperature 36.1 C (97 F) 02/07/2022 8:53 AM CDT Respiratory Rate 18 02/07/2022 8:53 AM CDT Oxygen Saturation 96% 02/07/2022 8:53 AM CDT Inhaled Oxygen Concentration - - Weight 90.6 kg (199 lb 11.8 oz) 01/22/2022 5:45 AM CDT Height 172.7 cm (5' 8) 01/22/2022 5:45 AM CDT Body Mass Index 30.37 01/22/2022 5:45 AM CDT Plan of Treatment Health Maintenance Due Date Last Done Comments Breast Cancer Screening-Mammogram 1956 Colon Cancer Screening-Colonoscopy 1956 Depression Screening 1956 Hepatitis C Screening 1956 Osteoporosis Screening-Bone Density Scan 1956 DTaP/Tdap/Td Vaccine (1 - Tdap) 1967 Hepatitis B Screening 1974 Pneumococcal vaccine 65+ (1 of 1 - PCV) 2006 Zoster Vaccine (1 of 2) 2006 Well Visit 65+ 2021 Fall Risk Assessment 01/23/2023 01/23/2022 Covid-19 Vaccine (4 - 2024-2 6 season) 2025 08/01/2021, 11/29/2020, 10/27/2020 Influenza Vaccine (#1) 2025 , 06/26/2018, 09/13/2005, Additional history exists Medical Devices Implanted Type Area Guest Experience Manager Device Identifier Shelf Expiration Date Model / Serial / Lot [employer] [id number] Infinity Knee 3 Tray Tibial Adaptis - [id number] Implanted:Qty: 1 on 01/22/2022 by Felix Landa MD at [facility] Left: Ankle [employer] [id number] 11/14/2029 [id number] / / [id number] [employer] [id number] Taldome Infinity Adaptis Flatcut Sz2 - [id number] - [id number] Implanted:Qty: 1 on 01/22/2022 by Fleix Landa MD at [facility] Left: Ankle [employer] [id number] 09/26/2029 [id number] / [id number] / [id number] [employer] [id number] Impl Fxatn 8mm Inbone 2+ Ankle Everlast - [id number] - [id number] Implanted:Qty: 1 on 01/22/2022 by Felix Landa MD at [facility] Left: Ankle [employer] [id number] 01/15/2029 [id number] / [id number] / [id number] Insurance [facility] Address: [place] [id number] [facility] MEDICARE ADVANTAGE [facility] Address: [address] [address] [facility] MDCR HMO REF [facility] Address: [facility] [address] [place] [address] Advance Directives For more information, please contact: [phone] * Full Code (Latest Code Status on File) Date Activated Date Inactivated Comments 01/22/2022 12:42 PM 01/23/2022 6:25 PM Care Teams Dock Coordinator Relationship Specialty Start Date End Date Jas West MD PCP - General Internal Medicine 02/08/21
== END 2025-07-22 09:52 | disposition home or self-care (01) ==
PROVIDERS: PCP Internal Medicine; Visit Provider Orthopaedic Surgery
DX: Z01.818 Encounter for other preprocedural examination (principal); M16.12 Unilateral primary osteoarthritis, left hip
CPT/HCPCS: 73700

== ENCOUNTER 2025-09-13 14:28 | Outpatient (CLI) | payer MEDICARE, SELFPAY ==
--- NOTE | ~2025-09-13 | XR_ITS ---
EXAMINATION: XR hip LT 2V w AP pelvis, 09/13/2025 14:45 SUPERVISOR RIDE ASSEMBLY HISTORY: M25.552 - Pain in left hip, chronic COMPARISON: No comparisons available. Findings: No acute fracture or malalignment. 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 Impression: No acute fracture or malalignment. Reviewed, dictated and finalized at location P. RVISOR RIDE ASSEMBLY Impression: No acute fracture or malalignment.
--- NOTE | ~2025-09-13 | XR_ITS ---
XR lumbar spine 2-3V Indication: M25.552 - Pain in left hip, chronic Comparison: None Findings: Mild dextroconvex scoliosis. No acute fracture or subluxation Moderate to severe loss of disc height throughout. Soft tissues unremarkable Impression: No acute abnormality. Reviewed, dictated and finalized at location P. K CONTROL CLERK Impression: No acute abnormality.
== END 2025-09-13 14:29 | disposition home or self-care (01) ==
PROVIDERS: PCP Internal Medicine; Visit Provider Internal Medicine
DX: M25.552 Pain in left hip (principal); W19.XXXA Unspecified fall, initial encounter
CPT/HCPCS: 72100; 73502

== ENCOUNTER 2025-09-29 14:23 | Outpatient (CLI) | payer MEDICARE, SELFPAY ==
--- OUTSIDE RECORDS SUMMARY | 2025-09-29 14:29 | XMS_ITS | Clinical Summary ---
Author Organization [facility] Address [facility] [place] [address] Care Team Providers Care Top Cutter Name Role Phone Jas West MD Primary Care Provider [phone] Allergies Active Allergy Reactions Criticality Noted Date Comments Hfaquqj-Mfjehhmyo-Lyrwwjn nophn Hives Medium 01/10/2022 Hives in same spot every time she'd get them Penicillins Hives,Swelling Medium 01/10/2022 As a child Medications atorvastatin (LIPITOR) 80 mg tabletIndicati ons:hyperlipid emia Take 80 mg by mouth nightly 021 Active butalbital-dorota taminophen-caf feine (ESGIC) 50-325-40 mg per tabletIndicati ons:Migraine Take 1 tablet by mouth daily as needed for headaches [address] (VOLTAREN) 75 mg EC tabletIndicati ons:Osteoarthr itis Take 75 mg by mouth 2 (two) times a day 021 Active diltiaZEM CD (CARDIZEM CD) 360 mg 24 hr capsuleIndicat ions:hypertens ion Take 360 mg by mouth nightly 021 Active ezetimibe (ZETIA) 10 mg tabletIndicati ons:hyperlipid emia Take 10 mg by mouth nightly 021 Active fluticasone propionate (FLONASE) 50 mcg/actuation nasal spray Administer 1 spray into each nostril every morning 021 Active omeprazole (PriLOSEC) 40 mg capsuleIndicat ions:GERD Take 40 mg by mouth every morning Active SUMAtriptan (IMITREX) 25 mg tablet Take 25 mg by mouth once as needed for migraine Active venlafaxine (EFFEXOR) 75 mg tabletIndicati ons:to reduce hot flashes Take 75 mg by mouth nightly Active glucosamine/ch ondr roe A sod (glucosamine-c hondroitin) 1,500-1,200 mg/30 mL liquidIndicati ons:Arthritis Take 1 tablet by mouth nightly Active omega-3/dha/ep a/fish oil/krill (MEGARED ADVANCED 4-IN-1 ORAL)Indicatio ns:Arthritis and cholesterol Take 1 capsule by mouth nightly Active ketorolac (TORADOL) 10 mg tablet Take 1 tablet (10 mg total) by mouth every 6 (six) hours as needed for pain 16 tablet Active Additional Information Patient not taking.Reported on 02/18/2025 molnupiravir 200 mg capsule (EUA) TAKE 4 CAPSULES BY MOUTH EVERY 12 HOURS FOR 5 DAYS Active HYDROcodone-ac etaminophen (NORCO) 7.5-325 mg per tablet Take by mouth every 6 (six) hours as needed Active methylPREDNISo lone (MEDROL DOSEPACK) 4 mg Dosepack methylprednisolone 4 mg tablets in a dose pack TAKE 6 TABLETS ON DAY 1 DIRECTED ON PACKAGE AND DECREASE BY 1 TAB EACH DAY FOR A TOTAL OF 6 DAYS Active amitriptyline (ELAVIL) 100 mg tablet TAKE 1 TABLET BY MOUTH EVERY DAY AT BEDTIME - PLEASE STOP THE 25MG Active traZODone (DESYREL) 50 mg tabletIndicati ons:insomnia associated with depression Take by mouth nightly Up to 2-3 tabs depending on how tired she is 09/20 Discontinued( Patient Reported) cholecalcifero l (VITAMIN D-3) 2000 unit capsuleIndicat ions:Vitamin D Deficiency Take 2,000 Units by mouth nightly 09/20 Discontinued( Patient Reported) apple cider vinegar 500 mg tabletIndicati ons:Someone said it is good for you Take 500 mg by mouth nightly 09/20 Discontinued aspirin 325 mg enteric coated tablet Take 1 tablet (325 mg total) by mouth daily 30 tablet 022 09/20 Discontinued( Patient Reported) senna (SENOKOT) 8.6 mg tablet Take 1 tablet by mouth daily 30 tablet 022 09/20 Discontinued( Patient Reported) promethazine (PHENERGAN) 25 mg tabletIndicati ons:Nausea and Vomiting Take 12.5 mg by mouth every 6 (six) hours as needed for nausea. Indications: nausea and vomiting 09/20 Discontinued( Patient Reported) pregabalin (LYRICA) 75 mg capsule Take 1 capsule PO in the AM for 1 week then take 2 capsule PO BID for a month 72 capsule 1 022 09/20 Discontinued( Patient Reported) cyclobenzaprin e (FLEXERIL) 10 mg tablet cyclobenzaprine 10 mg tablet 09/20 Discontinued( Patient Reported) Aimovig Autoinjector 70 mg/mL auto-injector subcutaneous injection INJECT 70MG SUBCUTANEOUSLY ONCE A MONTH 024 09/20 Discontinued( Patient Reported) Active Problems Problem Noted Date Diagnosed Date Primary localized osteoarthritis of pelvic regio n and thigh 07/26/2022 Hip pain 07/26/2022 Trochanteric bursitis of right hip 07/11/2022 Osteoarthritis of left ankle , unspecified osteoarthritis type 01/22/2022 Arthritis of left ankle 01/22/2022 HTN (hypertension) 01/17/2022 HLD (hyperlipidemia) 01/17/2022 Osteoarthritis of left ankle 12/06/2021 Overview (12/06/2021): Added automatically from request for surgery [id number] Surgical History Surgery Date Site/Laterality Comments APPENDECTOMY [...] Screening 1955 Osteoporosis Screening-Bone Density Scan 1955 Hepatitis B Screening 1974 DTaP/Tdap/Td Vaccine (1 - Tdap) 10/19/2003 4 Pneumococcal vaccine 65+ (1 of 1 - PCV) 2006 Zoster Vaccine (1 of 2) 2006 Well Visit 65+ 2021 Fall Risk Assessment 01/23/2023 01/23/2022 Covid-19 Vaccine (4 - 2024-2 6 season) 2025 08/01/2021, 11/29/2020, 10/27/2020 Influenza Vaccine (#1) 2025 , 06/26/2018, 08/16/2017, Additional history exists Medical Devices Implanted Type Area Cardiovascular Invasive Specialist Device Identifier Shelf Expiration Date Model / Serial / Lot Atrenta [id number] Infinity Knee 3 Tray Tibial Adaptis - [id number] Implanted:Qty: 1 on 01/22/2022 by Felix Landa MD at [facility] Left: Ankle [employer] [id number] 11/14/2029 [id number] / / [id number] [employer] [id number] Taldome Infinity Adaptis Flatcut Sz2 - [id number] - [id number] Implanted:Qty: 1 on 01/22/2022 by Felix Landa MD at [facility] Left: Ankle [employer] [id number] 09/26/2029 [id number] / [id number] / [id number] [employer] [id number] Impl Fxatn 8mm Inbone 2+ Ankle Everlast - [id number] - [id number] Implanted:Qty: 1 on 01/22/2022 by Felix Landa MD at [facility] Left: Ankle [employer] [id number] 01/15/2029 [id number] / [id number] / [id number] Insurance [facility] MEDICARE ADVANTAGE [facility] MEDICARE Address: [facility] [address] [place] [address] [facility] MEDICARE ADVANTAGE [facility] MEDIC[facility] Address: [address] [address] [place] [address] [facility] MDCR HMO REF [facility] MEDICARE Address: [address] [address] [place] [address] Advance Directives For more information, please contact: [phone] * Full Code (Latest Code Status on File) Date Activated Date Inactivated Comments 01/22/2022 12:42 PM 01/23/2022 6:25 PM Care Teams Top Cutter Relationship Specialty Start Date End Date Jas West MD PCP - General Internal Medicine 02/08/21
--- OUTSIDE RECORDS SUMMARY | 2025-09-29 14:29 | XMS_ITS | Clinical Summary ---
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 Gender Identity Not on file Sexual Orientation Not on file Plan of Treatment Health Maintenance Due Date Last Done Comments Colorectal Cancer Screening Colonoscopy (10 Years) 1956 Hepatitis C 1974 DTaP, Tdap and Td Vaccines ( 1 - Tdap) 1975 Mammogram Screening 1996 Pneumococcal Vaccine: 50+ Ye ars (1 of 1 - PCV) 2006 Zoster Vaccines (1 of 2) 2006 Annual Medicare Wellness Visit 2021 Dexa Scan (General) 2021 COVID-19 Vaccine ( - 2024-2 6 season) 2025 Influenza Adult (#1) 2025 RSV Immunization or 60+ Years (1 - 1-dose 75+ series) 2031 Hepatitis A Vaccines Aged Out No long er eligible based on patient's age to complete this topic Meningococcal B Vaccine Aged Out No l onger eligible based on patient's age to complete this topic Meningococcal Vaccine Aged Out No jeronimo desire eligible based on patient's age to complete this topic RSV Immunizations Under 20 Months Aged Out No longer eligible based on patient's age to complete this topic Insurance [facility] UHC MEDICARE Care Teams Core Manager Relationship Specialty Start Date End Date Jas West MD [address] [place] [address] PCP - General INTERNAL MEDICINE 09/02/20
--- NOTE | 2025-09-29 14:34 | ECG_ITS ---
Test Date: 2025-09-29 14:43:06 Measurements Intervals [place] Rate: 85 P: 62 SC: 148 QRS: -6 QRSD: 82 T: 53 QT: 370 QTc: 441 Interpretive Statements SINUS RHYTHM POSSIBLE LEFT ATRIAL ENLARGEMENT POSSIBLE RIGHT VENTRICULAR CONDUCTION DELAY BASELINE ARTIFACT- I, II, AVL, V3 BORDERLINE ECG No previous ECG available for comparison Electronically Signed On 09-29-2025 21:21:57 COPY TECHNICIAN by Panchito Chakraborty D.O.
== END 2025-09-29 14:24 | disposition home or self-care (01) ==
PROVIDERS: PCP Internal Medicine; Visit Provider Orthopaedic Surgery
DX: I10 Essential (primary) hypertension (principal); R73.03 Prediabetes; Z01.818 Encounter for other preprocedural examination; I45.9 Conduction disorder, unspecified
CPT/HCPCS: 93005